=== PATIENT | female | born 1965 | race Caucasian/White ===

== ENCOUNTER 2021-02-13 07:20 | Emergency (ER) | payer OTHER ==
[~2021-02-13] VITALS: Ht 162.6 cm; Wt 127.0 kg
[2021-02-13 08:37] LABS: ABSOLUTE NEUTROPHILS 4.3 thou/uL (1.4-8.2); BASOPHILS 0.6 % (0.0-2.0); HEMATOCRIT 45.1 % (37.0-47.0); LYMPHOCYTES 27.8 % (24.0-44.0); MCH 30.1 pg (26.0-34.0); MCHC 33.2 g/dL (28.0-37.0); MCV 90.8 fL (80.0-100.0); MONOCYTES 6.7 % (1.0-8.0); PLATELET COUNT 202 thou/uL (150-400); POLYS 61.9 % (36.0-66.0); RBC 4.97 mil/uL (4.20-5.00); RDW 14.1 % (10.5-14.5)
[2021-02-13 08:51] LABS: ANION GAP 5 mmol/L (7-16); BUN 11 mg/dL (7-18); CHLORIDE 103 mmol/L (98-107); CO2 31 mmol/L (21-32); CREATININE 0.7 mg/dL (0.6-1.0); GLUCOSE 129 mg/dL (74-106); SODIUM 139 mmol/L (136-145)
[2021-02-13 08:56] LABS: ALBUMIN 3.3 g/dL (3.4-5.0); DIRECT BILIRUBIN < 0.1 mg/dL (<0.1-0.2); SGOT 19 U/L (15-37); SGPT 28 U/L (30-65); TOTAL BILIRUBIN 0.2 mg/dL (0.2-1.0); TOTAL PROTEIN 7.4 g/dL (6.4-8.2)
[2021-02-13 09:18] LABS: SALICYLATE < 2.8 mg/dL (2.8-20.0)
[2021-02-13 15:29] LABS: URINE BILIRUBIN NEGATIVE (Negative); URINE BLOOD NEGATIVE (Negative); URINE CLARITY CLEAR; URINE COLOR YELLOW; URINE GLUCOSE-RANDOM* NEGATIVE (Negative); URINE KETONES NEGATIVE (Negative); URINE LEUKOCYTES-REFLEX NEGATIVE (Negative); URINE NITRITE-REFLEX NEGATIVE (Negative); URINE PROTEIN (DIPSTICK) NEGATIVE (Negative)
[2021-02-13 15:41] LABS: AMP/METHAMP Negative (Negative); BARBITURATES Negative (Negative); BENZODIAZEPINES Negative (Negative); COCAINE Negative (Negative); METHADONE Negative (Negative); OPIATES Negative (Negative); PCP Negative (Negative)
--- NOTE | 2021-02-13 15:41 | EKG ---
[place] [address] [facility] [place] [address] ELECTROCARDIOGRAM REPORT Name: RAMYA LAMBERT [id number] Admission: 02/13/21 Attend Phys: Discharge: Date of : 65 Report #: [id number] [facility] ED Test Date: 2021-02-13 Test Time: 11:34:27 Pat Name: RAMYA LAMBERT Department: Room: Gender: F Ecdis N Navigation Operator: josie martinez : 1965 Requested By: Franklin Rob Order Number: [id number] MD: Vazquez Smith Measurements Intervals [place] Rate: 107 P: 52 MN: 171 QRS: 14 QRSD: 95 T: 33 QT: 379 QTc: 506 Interpretive Statements Sinus tachycardia Borderline repolarization abnormality Borderline prolonged QT interval Baseline wander in lead(s) II,III,aVR,aVF,V1,V2,V3,V4,V5,V6 No previous ECG available for comparison Electronically Signed On 02-13-2021 15:41:03 INTERIOR MECHANIC by Vazquez Smith [email or web address] <ELECTRONICALLY SIGNED> By: Vazquez Smith MD, [facility] 02/13/21 1541 [id number] 1134 Vazquez Smith MD, FACC /EPI
[2021-02-13 18:59] VITALS: BP 113/80
== END 2021-02-13 19:00 | disposition home or self-care (01) ==
LOC: ER 07:20
PROVIDERS: Emergency Medicine
DX: F99 Mental disorder, not otherwise specified (principal); Z20.822 Contact with and (suspected) exposure to COVID-19; F20.9 Schizophrenia, unspecified; Z59.00 Homelessness unspecified; F41.9 Anxiety disorder, unspecified